=== PATIENT | female | born 2000 | race Caucasian/White ===

== ENCOUNTER 2022-10-05 20:26 | Observation (INO) | payer OTHER, SELFPAY ==
[2022-10-05] VITALS (7 sets, daily range): BP systolic 76–111; BP diastolic 52–68; PULSE 74–117; TEMP 36.6; BMI 53.1
[2022-10-05] MEDS: DEXTROSE 5%/LACTATED RINGERS 1,000 ML 100 ML IV CONT (21:50)
[2022-10-05] MEDS: ONDANSETRON INJ 4 MG/2 ML VIAL IV PUSH (22:06)
[2022-10-05 22:10] LABS: Hematocrit 38.5 % (37.0-47.0); Hemoglobin 12.9 g/dL (12.0-15.0); Mean Corpuscular HGB Conc 33.5 g/dl (32-36); Mean Corpuscular Hemoglobin 27.3 pg (26-34); Mean Corpuscular Volume 81.6 fl (80-100); Mean Platelet Volume 10.8 fl (7.4-10.4); Platelet Count Result 251 k/mm3 (150-375); Red Blood Count 4.72 M/mm3 (4.2-5.4); Red Cell Distribution Width 14.7 % (11.5-14.5); White Blood Count 17.7 K/mm3 (4.5-10.0)
[2022-10-05 22:21] LABS: Appearance Urine Slightly Cloudy (Clear); Bilirubin Urine 1+ (Negative); Blood Urine Trace-intact (Negative); Color Urine Yellow (Yellow); Glucose Urine UA Negative (Negative); Ketones Urine 2+ mg/dL (Negative); Leukocyte Esterase Ur Negative LEU/UL (Negative); Nitrate Urine Negative (Negative); Protein Urine 2+ mg/dL (Negative); Specific Grav Ur >= 1.030 (1.001-1.035); Urobilinogen Urine 0.2 mg/dL (<2.0)
[2022-10-05 22:22] LABS: Alanine Aminotransferase 15 U/L (6-35); Albumin Level 3.3 g/dL (3.5-5.1); Alkaline Phosphatase 182 U/L (38-126); Anion Gap 8 mmol/L (8-16); Aspartate Amino Transferase 24 U/L (14-36); Bilirubin,Total 0.4 mg/dL (0.2-1.3); Blood Urea Nitrogen 9 mg/dL (7-17); Calcium 8.7 mg/dL (8.4-10.2); Carbon Dioxide 20 mmol/L (22-30); Chloride 107 mmol/L (98-107); Estimated CRCL calculation 172 ml/min; Estimated Glomerular Filt Rate > 60; Glucose 86 mg/dL (65-110); Potassium 4.1 mmol/L (3.4-5.0); Sodium 135 mmol/L (137-145)
[2022-10-05 22:26] LABS: Bacteria Urine Trace /hpf; Mucus Urine Rare /lpf; Squamous Epithelial Cell Urine Many /hpf (Few)
[2022-10-05 22:30] LABS: Add Urine Microscopic? YES
--- NOTE | 2022-10-06 02:55 | OBADM ---
This patient, Carmen Boyer, admitted to the OB room OB Post 115 for observation. Patient/family oriented to hospital policies and general routines including ID bracelet, bed and alarms, visiting hours, pain management, procedures, bathroom and other care routines, personal items, smoking policy, room service/diet, and visiting hours. Patient/Family are encouraged to report perceived risks to care and to ask questions if they do not understand what they are told or what they should do.
--- NOTE | 2022-10-25 10:26 | PM.OBTRLD ---
OB - Triage/Final Diagnosis Visit Information Comments/Additional reasons for admission: I have assessed the risk for this patient, Carmen Boyer, and determined that she would benefit from observation care. Evaluation Laboratory results: Laboratory Tests 10/05/22 10/05/22 10/05/22 21:57 21:57 21:57 WBC 17.7 H RBC 4.72 Hgb 12.9 Hct 38.5 MCV 81.6 MCH 27.3 MCHC 33.5 RDW 14.7 H Plt Count 251 MPV 10.8 H Sodium 135 L Potassium 4.1 Chloride 107 Carbon Dioxide 20 L Anion Gap 8 BUN 9 Creatinine 0.60 L Estim Creat Clear Calc 172 Estimated GFR > 60 Glucose 86 Calcium 8.7 Total Bilirubin 0.4 AST 24 ALT 15 Alkaline Phosphatase 182 H Total Protein 7.0 Albumin 3.3 L Urine Color Yellow Urine Appearance Slightly cloudy Urine pH 6.0 Ur Specific [place] >= 1.030 Urine Protein 2+ H Urine Glucose (UA) Negative Urine Ketones 2+ H Ur Blood (Man) Trace-intact Urine Nitrate Negative Urine Bilirubin 1+ H Urine Urobilinogen 0.2 Leukocyte Esterase Rfl Negative Urine RBC 11-20 H Urine WBC 7-9 H Ur Squamous Epith Cells Many H Urine Bacteria Trace Urine Mucus Rare Final Diagnosis (1) False labor: Code(s): O47.9 - False labor, unspecified Status: Acute
== END 2022-10-06 03:15 | disposition home or self-care (01) ==
PROVIDERS: Advanced Practice Midwife; Admitting Provider Obstetrics & Gynecology; Visit Provider Obstetrics & Gynecology
DX: O47.03 False labor before 37 completed weeks of gestation, third trimester (principal); Z3A.36 36 weeks gestation of pregnancy; O26.893 Other specified pregnancy related conditions, third trimester; R19.7 Diarrhea, unspecified; O21.2 Late vomiting of pregnancy
CPT/HCPCS: 36415; 80053; 81001; 85027; 87086; 87088; 96374; G0378; G0379; J2405; J7121

== ENCOUNTER 2022-10-27 16:06 | Inpatient (IN) | payer OTHER, SELFPAY ==
[2022-10-27] VITALS (8 sets, daily range): BP systolic 111–128; BP diastolic 67–108; PULSE 81–105; RESP 16–18; TEMP 36.3–37.2; BMI 52.2
--- NOTE | 2022-10-27 16:57 | LDADM ---
This patient, Carmen Boyer, was admitted to Labor/Delivery/Recovery 107 on 10/27/22 at 16:06. Plans for labor, pain management and were discussed with patient. Patient/family oriented to hospital policies and general routines including ID bracelet, bed and alarms, visiting hours, pain management, procedures, bathroom and other care routines, personal items, smoking policy, room service/diet and guest tray routines, security routines, and visiting hours. Patient/Family are encouraged to report perceived risks to care and to ask questions if they do not understand what they are told or what they should do. See OBIX for further documentation.
[2022-10-27] MEDS: DINOPROSTONE 10 MG VAG INSERT VAGINAL (17:08)
[2022-10-27 17:28] LABS: Basophils Absolute Auto 0.1 K/mm3 (0.0-0.1); Basophils Percent Auto 0.5 % (0.2-1.2); Eosinophils Percent Auto 0.3 % (0-4.4); Hematocrit 36.9 % (37.0-47.0); Hemoglobin 12.1 g/dL (12.0-15.0); Immature Granulocyte Absolute 0.06 K/mm3 (0.00-0.031); Immature Granulocyte Percent A 0.6 % (0-0.5); Lymphocytes Absolute Auto 2.21 K/mm3 (0.9-3.2); Lymphocytes Percent Auto 20.5 % (18.3-44.2); Mean Corpuscular HGB Conc 32.8 g/dl (32-36); Mean Corpuscular Hemoglobin 26.7 pg (26-34); Mean Corpuscular Volume 81.3 fl (80-100); Mean Platelet Volume 11.7 fl (7.4-10.4); Monocytes Absolute Auto 0.7 K/mm3 (0.1-0.6); Monocytes Percent Auto 6.8 % (2.6-8.5); Neutrophils Absolute Auto 7.7 K/mm3 (1.3-6.7); Neutrophils Percent Auto 71.3 % (45.5-73.1); Platelet Count Result 259 k/mm3 (150-375); Red Blood Count 4.54 M/mm3 (4.2-5.4); Red Cell Distribution Width 16.1 % (11.5-14.5); White Blood Count 10.8 K/mm3 (4.5-10.0)
[2022-10-28] VITALS (295 sets, daily range): BP systolic 77–162; BP diastolic 23–112; PULSE 63–159; TEMP 36.1–36.8; O2SAT 96–100
[2022-10-28] MEDS: LACTATED RINGERS 1,000 ML 125 ML IV CONT ×4 (02:54→19:02)
[2022-10-28] MEDS: OXYTOCIN 30 UNITS/NS 500 ML 30 UNITS/500 ML BAG 6 UNITS IV CONT (06:14)
--- NOTE | 2022-10-28 06:46 | WPDANESEPP ---
Anes - Eval Pre Procedure Procedure: Labor Epidural Date/Time: 10/28/22 06:46 Surgeon: Avery Preop Diagnosis: Pain c contractions Pre Op Diagnosis: IOL Patient Data Age: 22 Gender: F Height: 1.63 m Weight: 138 kg Last Vital Signs Temp 36.6 C 10/28/22 05:00 Pulse 78 10/28/22 06:46 Resp 16 10/27/22 23:00 BP 137/95 H 10/28/22 06:46 O2 Del Method Room Air 10/27/22 16:50 Allergies Allergy/AdvReac Type Severity Reaction Status Date / Time Sulfa (Sulfonamide Allergy Swelling Verified 10/05/22 21:36 Antibiotics) of Lip/Tongue/Throat Home Medications Medication Instructions Recorded Confirmed Type prenat.vits,tamara,[id number] 1 tablet PO HS 10/03/22 10/03/22 History Laboratory Tests 10/27/22 10/27/22 10/27/22 16:53 16:53 16:53 WBC 10.8 K/mm3 H K/mm3 (4.5-10.0) RBC 4.54 M/mm3 M/mm3 (4.2-5.4) Hgb 12.1 g/dL g/dL (12.0-15.0) Hct 36.9 % L % (37.0-47.0) MCV 81.3 fl fl (80-100) MCH 26.7 pg pg (26-34) MCHC 32.8 g/dl g/dl (32-36) RDW 16.1 % H % (11.5-14.5) Plt Count 259 k/mm3 k/mm3 (150-375) MPV 11.7 fl H fl (7.4-10.4) Immature Gran % (Auto) 0.6 % H % (0-0.5) Neut % (Auto) 71.3 % % (45.5-73.1) Lymph % (Auto) 20.5 % % (18.3-44.2) [place] % (Auto) 6.8 % % (2.6-8.5) Eos % (Auto) 0.3 % % (0-4.4) Baso % (Auto) 0.5 % % (0.2-1.2) Lymph # (Auto) 2.21 K/mm3 K/mm3 (0.9-3.2) [place] # (Auto) 0.7 K/mm3 H K/mm3 (0.1-0.6) Eos # (Auto) 0.0 K/mm3 K/mm3 (0-0.3) Baso # (Auto) 0.1 K/mm3 K/mm3 (0.0-0.1) Abs Immat Gran (auto) 0.06 K/mm3 H K/mm3 (0.00-0.031) Absolute Neuts (auto) 7.7 K/mm3 H K/mm3 (1.3-6.7) Absolute Nucleated RBC 0.0 K/mm3 K/mm3 (0.0-0.012) Nucleated RBC % 0.0 % % (0.0-0.2) RPR Pending Blood Type A Positive Antibody Screen Negative Patient hx anesthesia problems: none Family hx anesthesia problems: none Results Review: All pre-operative results and documents have been reviewed as part of the pre-operative evaluation. [facility] Family History Family History Grandparent Lung cancer Father Diabetes mellitus Grandparent Diabetes mellitus Grandparent Diabetes mellitus Sibling Epilepsy Social History Social History Smoking status: Former smoker Smoking end date: 09/16/20 Substance use: never Lack of Transportation: No Lack of Food: Never True Current Housing: I Have Housing Concerned About Future Housing: No Difficulty Paying Gas/Electric Bills: No Difficulty Paying for Meds: No Currently Unemployed: YES Education: High School Diploma/GED Difficulty w/ Childcare or Family Care: No Spiritual care concerns: No Exam Day of Procedure 10/28/22 06:46 Patient weight: obese Lungs: normal air movement Airway: Mallampati scale class III Neurological: alert and oriented
--- NOTE | 2022-10-28 08:06 | WPDOBADMIT ---
Obstetrics - Admit Note Admission Note: record reviewed. No pertinent additions to the history and/or any subsequent changes in the physical findings that are not consistent with the expected course of the were found. Elective IOL, SVE /-2, AROM, Copious amounts of clear amniotic fluid, IUPC and FSE placed Additions to the history and/or subsequent changes in the physical findings follow. None.
[2022-10-28 16:44] LABS: Rapid Plasma Reagin Non-Reactive (NonReactive)
--- NOTE | 2022-10-28 17:56 | PM.OBPNLAB ---
Pain Control Date/time seen: 10/28/22 17:40 Comments: Pt comfortable. No cervical change. IUPC changed. If pattern remains ineffective will give a 30 minute pitocin break and restart with new bag of pitocin. Pt agrees.
[2022-10-28] MEDS: OXYTOCIN 30 UNITS/NS 500 ML 30 UNITS/500 ML BAG IV CONT (19:00)
[2022-10-29] VITALS (205 sets, daily range): BP systolic 75–211; BP diastolic 47–181; PULSE 82–167; RESP 16–18; TEMP 36.6–37.7; O2SAT 94–100
[2022-10-29] MEDS: LACTATED RINGERS 1,000 ML 125 ML IV CONT (02:54)
[2022-10-29] MEDS: SODIUM CHLORIDE 0.9% IV 300 ML 600 ML I-UTERINE (05:48)
[2022-10-29] MEDS: PROMETHAZINE HCL 25 MG/ML AMPUL 12.5 MG IV PUSH (05:48)
[2022-10-29] MEDS: AMPICILLIN 2 GM/NS 100 ML 2 GM/100 ML BAG IVPB (05:50)
[2022-10-29] MEDS: AMPICILLIN 1 GM/NS 50 ML 1 GM/50 ML BAG IVPB (09:37)
[2022-10-29] MEDS: miSOPROStol 200 MCG TABLET 800 MCG RECTAL (10:11)
[2022-10-29] MEDS: fentaNYL CITRATE INJ (*CRX) 100 MCG/2 ML VIAL 50 MCG IV PUSH (10:26)
[2022-10-29] MEDS: OXYTOCIN 30 UNITS/NS 500 ML 30 UNITS/500 ML BAG 125 UNITS IV CONT (10:33)
--- NOTE | 2022-10-29 10:39 | PM.OBPRVD ---
OB - Delivery Note Procedure Delivery date: 10/29/22 Procedure: Induction method: Per Pitocin Protocol Delivery monitor: External FHT, External Uterine, Internal FHT and Internal Uterine Route of delivery: Episiotomy description: None Laceration Description: Perineal - 2nd Degree Delivery repair: vicryl Specimen: No Quantitative Blood Loss (ml): 551 Anesthesia type: Local Complications: Increased bleeding after delivery of placenta. Uterus boggy. Firmed after a couple minutes with massage. Cytotec 800 per rectum. Bleeding controlled. Mother and baby in stable condition. Cord gasses collected and handed off to staff. Baby Date of : 10/29/22 Time of : 09:58 Weeks of gestation at delivery: 39 gender: Male presentation: vertex position: Right Occiput Anterior Placenta delivery description: Spontaneous Cord Vessel Description: 3 Vessels and Delayed Cord Clamping
[2022-10-29] MEDS: BENZOCAINE 20% AER SPR (*SP) 56 GM CAN 1 SPRAY TOPICAL (12:37)
[2022-10-29] MEDS: WITCH HAZEL 40 PADS 1 PAD TOPICAL (12:37)
--- NOTE | 2022-10-29 13:00 | OBPPTRN ---
Patient transferred to post room #287 via wheelchair. Support person present. Oriented to unit, room, information board, rooming in, admission packet and security measures. Patient verbalizes understanding.
[2022-10-29] MEDS: IBUPROFEN 600 MG TABLET PO ×2 (13:32→20:35)
[2022-10-29] MEDS: DOCUSATE SODIUM 100 MG CAPSULE PO (16:55)
[2022-10-29] MEDS: ACETAMINOPHEN 325 MG TABLET 650 MG PO (16:55)
[2022-10-30] MEDS: IBUPROFEN 600 MG TABLET PO ×2 (02:38→15:58)
[2022-10-30 05:16] VITALS: BP 139/84; PULSE 91; RESP 18; TEMP 36.6; O2SAT 100
[2022-10-30 05:44] LABS: Hematocrit 25.8 % (37.0-47.0); Hemoglobin 8.4 g/dL (12.0-15.0)
--- NOTE | 2022-10-30 07:14 | PM.OBPNVD ---
OB - PN: Subj Subjective Date/time seen: 10/30/22 07:14 s/p vaginal delivery day 1 OB - PN: Obj Data Labs 10/30/22 05:16 Labs: Laboratory Results - last 24 hr 10/30/22 05:16 Hgb 8.4 L D Hct 25.8 L OB - PN A/P Plan day: 1 Plan: routine care Time Spent With Patient Time: Total time spent is greater than 50% in coordination of care (as documented) at patient's floor/unit and/or counseling patient: Review of Systems Review of Systems: All systems reviewed & are unremarkable except as noted in HPI and below Exam Const: General: cooperative, healthy appearing and comfortable
[2022-10-30 07:30] VITALS: BP 150/78; PULSE 107; RESP 14; TEMP 36.3; O2SAT 99
--- NOTE | 2022-10-30 07:30 | WPDANLDPN2 ---
Anes-Prog Note L&D Date/Time: 10/30/22 07:30 Comfortable throughout: labor and delivery Neuraxial method: epidural Epidural/Spinal procedure site: clean & non-tender Neuro status: Neuro function grossly intact. Cardiovascular status: normal Respiratory status: normal Airway patency: baseline Mental status: baseline Post-Op hydration status: normal Vital Signs: Last Vital Signs Temp 36.6 C 10/30/22 05:16 Pulse 91 10/30/22 05:16 Resp 18 10/30/22 05:16 BP 139/84 10/30/22 05:16 Pulse Ox 100 10/30/22 05:16 O2 Del Method Room Air 10/29/22 13:00 Pain score (VAS): 0 I/O: Intake & Output 10/29/22 10/29/22 10/30/22 15:59 23:59 07:59 Intake Total 500 500 Output Total 651 Balance -151 500 Post-procedural complaints: none Patient feedback: Patient satisfied with anesthetic care.
[2022-10-30] MEDS: MULTIVIT/MIN/PREN/FOL AC/IRON TABLET 1 TAB PO (08:03)
[2022-10-30] MEDS: POLYSACCHARIDE IRON COMPLEX 150 MG CAPSULE PO (08:03)
[2022-10-30] MEDS: DOCUSATE SODIUM 100 MG CAPSULE PO ×2 (08:03→16:00)
[2022-10-30 08:10] VITALS: BP 134/83; PULSE 95
--- NOTE | 2022-10-30 08:33 | PC.NURSE ---
On 10/30/22, the student, Rosa, provided care and completed [facility] documentation on this patient. I have reviewed the student's documentation and agree with the findings.
--- NOTE | 2022-10-30 08:34 | PC.NURSE ---
RN informed of pt's BP taken by student nurse. RN will recheck.
--- NOTE | 2022-10-30 14:08 | PC.NURSE ---
Addendum entered by Celena Renner RN 10/30/22 14:10: We did discuss briefly pumping 8 times in 24 hours to protect the milk supply when is getting a bottle. Mother states she is pumping. Encouraged consistency, then mother went back to sleep. Original Note: [id number] Introductions were made, then consulted with patient to assess needs related to . Mother declines assistance with and states her infant isn't latching. Mother is sleepy and isn't in the room. contact name was written on the board and encouraged the parents to call for assistance with . Father of the baby voiced understanding. Reported to the primary RN.
[2022-10-30] MEDS: FERROUS SULFATE 324 MG TABLET PO (16:00)
[2022-10-30 19:05] VITALS: BP 153/96; PULSE 97; RESP 16; TEMP 36.6
[2022-10-31 05:31] LABS: Basophils Absolute Auto 0.1 K/mm3 (0.0-0.1); Basophils Percent Auto 0.3 % (0.2-1.2); Eosinophils Absolute Auto 0.2 K/mm3 (0-0.3); Hematocrit 25.5 % (37.0-47.0); Hemoglobin 8.2 g/dL (12.0-15.0); Immature Granulocyte Absolute 0.29 K/mm3 (0.00-0.031); Immature Granulocyte Percent A 1.9 % (0-0.5); Lymphocytes Absolute Auto 3.74 K/mm3 (0.9-3.2); Lymphocytes Percent Auto 24.4 % (18.3-44.2); Mean Corpuscular HGB Conc 32.2 g/dl (32-36); Mean Corpuscular Hemoglobin 26.4 pg (26-34); Mean Platelet Volume 10.8 fl (7.4-10.4); Monocytes Absolute Auto 0.8 K/mm3 (0.1-0.6); Monocytes Percent Auto 5.5 % (2.6-8.5); Neutrophils Absolute Auto 10.3 K/mm3 (1.3-6.7); Neutrophils Percent Auto 66.9 % (45.5-73.1); Platelet Count Result 189 k/mm3 (150-375); Red Blood Count 3.11 M/mm3 (4.2-5.4); Red Cell Distribution Width 16.4 % (11.5-14.5); White Blood Count 15.3 K/mm3 (4.5-10.0)
--- NOTE | 2022-10-31 07:55 | P.PNOB_ITS ---
OB - PN: Subj Subjective Date/time seen: 10/31/22 07:55 Patient comments: no complaints baby status: doing well OB - PN: Obj Data Labs 10/31/22 05:13 Labs: Laboratory Results - last 24 hr 10/31/22 05:13 WBC 15.3 H RBC 3.11 L Hgb 8.2 L Hct 25.5 L MCV 82.0 MCH 26.4 MCHC 32.2 RDW 16.4 H Plt Count 189 MPV 10.8 H Immature Gran % (Auto) 1.9 H Neut % (Auto) 66.9 Lymph % (Auto) 24.4 [place] % (Auto) 5.5 Eos % (Auto) 1.0 Baso % (Auto) 0.3 Lymph # (Auto) 3.74 H [place] # (Auto) 0.8 H Eos # (Auto) 0.2 Baso # (Auto) 0.1 Abs Immat Gran (auto) 0.29 H Absolute Neuts (auto) 10.3 H Absolute Nucleated RBC 0.0 Nucleated RBC % 0.0 OB - PN A/P Plan day: 2 Plan: routine care and discharge home (F/U in 1 week for bp check) Comments: Pt up moving around. States she feels really good. No c/o bp or anemia symptoms. Would like to reevaluate later today. Consider 72 hour stay for hypertension. Time Spent With Patient Time: Total time spent is greater than 50% in coordination of care (as documented) at patient's floor/unit and/or counseling patient: Time with patient: less than 15 minutes Review of Systems Review of Systems: All systems reviewed & are unremarkable except as noted in HPI and below Exam Narrative: Fundus firm and vaginal flow controlled. No lower ext redness, warmth, or edema. Negative homans. Denies h/a, v/d or e/p. Reflexes normal. Const: General: comfortable Chest: Breast/axilla inspection: normal inspection of the breasts Resp: Effort & Inspection: normal respiratory effort Cardio: Rate: regular rate GI: GI Palp: Yes Soft to palpation Psych: Appearance: grossly normal Affect: normal affect Attitude: cooperative Thought content: Yes Normal thought content present Judgement: Good judgement present (Psych)
[2022-10-31 08:00] VITALS: BP 130/81; PULSE 100; RESP 14; TEMP 36.9; O2SAT 100
[2022-10-31] MEDS: FERROUS SULFATE 324 MG TABLET PO (10:00)
[2022-10-31] MEDS: MULTIVIT/MIN/PREN/FOL AC/IRON TABLET 1 TAB PO (10:00)
[2022-10-31] MEDS: WITCH HAZEL 40 PADS 1 PAD TOPICAL (10:00)
[2022-10-31] MEDS: IBUPROFEN 600 MG TABLET PO (10:00)
[2022-10-31] MEDS: DOCUSATE SODIUM 100 MG CAPSULE PO (10:00)
[2022-10-31] MEDS: BENZOCAINE 20% AER SPR (*SP) 56 GM CAN 1 SPRAY TOPICAL (10:00)
[2022-10-31 10:45] VITALS: PULSE 100; RESP 14; O2SAT 100
[2022-10-31 12:10] VITALS: BP 126/77; PULSE 95; RESP 16; TEMP 36.2; O2SAT 100
[2022-10-31 15:15] VITALS: BP 122/82; PULSE 80; RESP 16; TEMP 36.7; O2SAT 100
[2022-11-01 11:07] VITALS: BP 132/71; PULSE 102; RESP 20; TEMP 37.1; O2SAT 100
--- NOTE | 2022-11-03 09:30 | PM.OBDSVD ---
DS: Admitting Diagnosis Discharge Date 10/31/22 Admitting Diagnosis Labor DS: Discharge Diagnosis Discharge Diagnosis (1) Vaginal delivery: Code(s): O80 - Encounter for full-term uncomplicated delivery Status: Acute OB - DS: Summary OB Procedures : None OB Procedures Intrapartum: Spontaneous Vag Delivery OB Procedures: : None Time Spent with Patient Time attestation: Total time spent providing and/or coordinating discharge services: Discharge Plan Discharge Consulting providers: Karolina Paz ; Kelly Juarez ; Lucinda Mejia Discharging Clinician: Christel Hilliard Patient Disposition: Home, Self-Care Activity: as tolerated Diet: regular Discharge Instructions: Education: Mom and Baby Guide Given to: Mother Follow-Up: Call your delivering provider's office for an appointment to be seen in: 1 Week Mom and baby should come to the [facility] for the follow-up appointment. Appointment Date/Time: November 01, 2022 at 11:00 am What to expect at your follow-up visit: Blood Pressure Check Physical Assessment Call [phone] if you are unable to keep your appointment time. BREAST CARE: * Wear a snug supportive bra. * For engorgement discomfort: Bottle Feeding: * May apply ice packs EPISIOTOMY/PERINEAL CARE: * Until bleeding stops, use your maranda bottle after urinating * Change your pad frequently throughout the day * You may take sitz baths several times a day (fill your bathtub with warm water and soak for 20 minutes.) Do NOT bathe in the water * No tub baths until seen by your physician - You may shower ACTIVITY: * Rest as much as possible. * Do not exercise or lift anything heavier than your baby (such as laundry or other children.) * Avoid stairs or driving as much as possible. * Do not put anything into the vagina. No douching, tampons, or sexual activity until seen by physician. NOTIFY PHYSICIAN IF YOU HAVE ANY QUESTIONS OR IF ANY OF THE FOLLOWING SYMPTOMS OCCUR: * If your vaginal area becomes red, swollen, or more painful than what you have experienced in the hospital. * If your vaginal bleeding becomes foul smelling. * If your vaginal bleeding becomes more heavy than a period or if your bleeding changes from pink to bright red. However, you may pass an occasional walnut-sized clot once or twice for the first week . * If you experience a sharp, shooting pain in your calves. * If you discover a hard, reddened area on your breast or if you experience flu-like symptoms. DIET: * Eat regular, well-balanced meals. * Drink plenty of fluids daily. Patient Instructions: Hypertension During (DC) Stand Alone Forms: General Discharge Information Follow-up/Referrals: Christel Hilliard, ANGELA [Certified Nurse Plant Tender] - 1 Week Discharge Medications: New ferrous sulfate 325 mg (65 mg iron) Tablet 324 mg PO BIDWM 0RF docusate sodium 100 mg Capsule 100 mg PO BID PRN (Reason: Constipation) 0RF Continued prenat.vits,tamara,[id number] Tablet 1 tablet PO HS Date of admission: 10/27/22 16:06 Primary Care Provider: PHYSICIAN,SALES ADMINISTRATION SPECIALIST Admitting Provider: Gilberto Varela Attending physician on admission: Christel Hilliard Condition: Stable
== END 2022-10-31 16:49 | disposition home or self-care (01) | DRG 560 ==
LOC: ANHOB2 10-31 15:40 → ANHLDR 11-01 09:45 → ANHOB2 11-01 09:45
PROVIDERS: Advanced Practice Midwife; Admitting Provider Obstetrics & Gynecology; Visit Provider Advanced Practice Midwife
DX: O42.02 Full-term premature rupture of membranes, onset of labor within 24 hours of rupture (principal); O36.8330 Maternal care for abnormalities of the fetal heart rate or rhythm, third trimester, not applicable or unspecified; Z37.0 Single live birth; Z3A.39 39 weeks gestation of pregnancy; O70.1 Second degree perineal laceration during delivery
CPT/HCPCS: 36415; 85014; 85018; 85025; 86592; 86850; 86900; 86901; A9270; J0290; J2550; J2590; J2795; J3010; J7030; J7120